=== PATIENT | male | born 1970 | race Caucasian/White ===

== ENCOUNTER 2019-05-31 09:16 | Emergency (ER) | payer OTHER ==
[~2019-05-31] VITALS: Ht 177.8 cm; Wt 100.7 kg
[~2019-05-31 09:16] MED LIST: SIMV40TA3
[2019-05-31] MEDS ORDERED: SODIUM CHLORIDE FLUSH 10ML SYR IVF ONE (09:30)
--- NOTE | 2019-05-31 10:04 | NUR ---
[employer]: PT TO ROOM FROM [facility]
--- NOTE | 2019-05-31 10:09 | NUR ---
ADAPTED PHYSICAL EDUCATION SPECIALIST: PT WAS TAKEN TO CT, AFTER ARRIVAL TO ROOM
[2019-05-31 10:13] LABS: MEAN CORPUSCULAR HEMOGLOBIN 20.1 pg (27.5-34.5); MEAN CORPUSCULAR HGB CONC 30.1 g/dL (33.2-36.2); MEAN CORPUSCULAR VOLUME 66.7 fL (81-97); MEAN PLATELET VOLUME 8.5 fL (7.4-10.4); PLATELET COUNT 298 x10^3/uL (130-400); RED BLOOD COUNT 5.74 x10^6/uL (4.38-5.82); RED CELL DISTRIBUTION WIDTH 20.5 % (9.4-14.8)
[2019-05-31 10:18] LABS: ALBUMIN 3.8 g/dL (3.4-5.0); ANION GAP 7 mmol/L (5-15); CALCIUM 9.1 mg/dL (8.5-10.1); CHLORIDE 110 mmol/L (98-107)
[2019-05-31 10:22] LABS: ALANINE AMINOTRANSFERASE 38 U/L (12-78); ALKALINE PHOSPHATASE 79 U/L (45-117); BILIRUBIN,TOTAL 0.5 mg/dL (0.2-1.0); CREATININE 1.15 mg/dL (0.7-1.3); TOTAL PROTEIN 7.5 g/dL (6.4-8.2)
[2019-05-31 10:28] LABS: BASOPHILS # (AUTO) 0.05 x10^3/uL (0-0.1); BASOPHILS % (AUTO) 1 % (0-1); EOSINOPHILS # (AUTO) 0.14 x10^3/uL (0-0.4); EOSINOPHILS % (AUTO) 1 % (1-7); LYMPHOCYTES # (AUTO) 0.87 x10^3/uL (1-3.4); LYMPHOCYTES % (AUTO) 8 % (22-44); MD SCAN; MONOCYTES # (AUTO) 0.41 x10^3/uL (0.2-0.8); MONOCYTES % (AUTO) 4 % (2-9); NEUTROPHILS # (AUTO) 9.95 x10^3/uL (1.8-6.8); NEUTROPHILS % (AUTO) 87 % (42-75)
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
--- NOTE | 2019-05-31 10:46 | NUR ---
pacemaker interogated by [employer]
--- NOTE | 2019-05-31 10:55 | NUR ---
CALLED [employer] [facility] 1 800 CARDIAC AND RESUME SPECIALIST WILL CALL DR. PAREDES BACK. PT GIVEN PO FLUIDS.
[2019-05-31] MEDS ORDERED: ATOR40TA78 PO (11:02)
[2019-05-31 11:47] VITALS: BP 143/65
--- NOTE | 2019-05-31 11:50 | NUR ---
HEAD DRESSED, ORTHOS DONE AND PRESENTED TO
--- NOTE | 2019-05-31 12:21 | NUR ---
Patient/Caregiver given discharge instructions and they have confirmed that they understand the instructions. Patient ambulatory with steady gait.
== END 2019-05-31 12:32 | disposition home or self-care (01) ==
LOC: ED 12:15
DX: R55 Syncope and collapse (principal); R42 Dizziness and giddiness; Z95.0 Presence of cardiac pacemaker
CPT/HCPCS: 36415; 70450; 80053; 85025; 93005; 99284